=== PATIENT | female | born 1990 | race Caucasian/White ===

== ENCOUNTER 2018-07-15 08:55 | Inpatient (IN) ==
[2018-07-15 09:16] VITALS: BMI 32.4
[2018-07-15 09:28] LABS: BILIRUBIN,URINE 1+ (NEGATIVE); BLOOD/HEMOGLOBIN,URINE 1+ (NEGATIVE); COLOR,URINE YELLOW (YELLOW); GLUCOSE, URINE NEGATIVE (NEGATIVE); KETONES,URINE 1+ (NEGATIVE); LEUKOCYTE ESTERASE ,URINE 2+ (NEGATIVE); NITRITES,URINE POSITIVE (NEGATIVE); PROTEIN,URINE 2+ (NEGATIVE); UROBILINOGEN,URINE 2+ (NORMAL)
[2018-07-15 09:29] LABS: AMNISURE ROM TEST THERE IS A RUPTURE (NO RUPTURE); APPEARANCE,URINE SLIGHTLY HAZY (CLEAR)
[2018-07-15 09:36] LABS: BACTERIA,URINE TRACE /HPF (NEGATIVE); SQUAMOUS EPITHELIAL CELL,UR RARE /HPF (NEGATIVE)
[2018-07-15 09:37] LABS: AMORPHOUS SEDIMENT,UR TRACE /HPF (NEGATIVE); MUCUS,URINE FEW /HPF (NEGATIVE); YEAST,URINE RARE /HPF (NEGATIVE)
[2018-07-15] MEDS ORDERED: LR 1000 ML IV 1,000 ML IV ONE (09:37)
[2018-07-15] MEDS ORDERED: FENTANYL INJ 100 mcg ONE ×2 (09:37→17:10)
[2018-07-15] MEDS ORDERED: D5LR 1L W PITOCIN 10 UNITS/L 10 UNITS/1,000 ML BAG IV ONE (09:38)
[2018-07-15] MEDS ORDERED: NAROPIN EPIDURAL 0.2% + FENTANYL 90MCG 60 ML EPI ONE (09:38)
[2018-07-15] MEDS ORDERED: ADRENALINE CHL INJ ONE (09:39)
[2018-07-15] MEDS ORDERED: PITOCIN ONE (09:39)
[2018-07-15] MEDS ORDERED: XYLOCAINE 1 % (PLAIN) ONE (10:03)
[2018-07-15] MEDS ORDERED: PITOCIN IVP ONE (10:18)
[2018-07-15] MEDS ORDERED: REGLAN INJ 10 MG VIAL IVP PRN ×2 (10:18→17:44)
[2018-07-15] MEDS ORDERED: D5LR 1L W PITOCIN 10 UNITS/L 10 UNITS/1,000 ML BAG IV PRN (10:18)
[2018-07-15] MEDS ORDERED: NUBAIN INJ 200 MG VIAL MULTIDOSE IVP PRN (10:18)
[2018-07-15 10:36] LABS: BASOPHILS # (AUTO) 0.1 X10^3/uL (0.0-0.1); EOSINOPHILS # (AUTO) 0.1 x10^3/uL (0.0-0.2); EOSINOPHILS % (AUTO) 0.6 % (0.9-2.9); HEMATOCRIT 29.4 % (36.0-47.0); HEMOGLOBIN 9.8 g/dL (12.0-16.0); LYMPHOCYTES # (AUTO) 2.1 X10^3/uL (1.3-2.9); LYMPHOCYTES % (AUTO) 18.6 % (21.0-51.0); MEAN CORPUSCULAR HEMOGLOBIN 27.3 pg (27.0-34.0); MEAN CORPUSCULAR HGB CONC 33.2 g/dL (33.0-35.0); MEAN CORPUSCULAR VOLUME 82.2 fL (80.0-100.0); MEAN PLATELET VOLUME 9.5 fL (7.4-11.0); MONOCYTES # (AUTO) 0.6 x10^3/uL (0.3-0.8); MONOCYTES % (AUTO) 5.3 % (0.0-13.0); NEUTROPHILS # (AUTO) 8.5 x10^3/uL (2.2-4.8); NEUTROPHILS % (AUTO) 74.5 % (42.0-75.0); PLATELET COUNT 288 X10^3/uL (150.0-450.0); RED BLOOD COUNT 3.58 X10^6/uL (3.5-5.4); WHITE BLOOD COUNT 11.4 X10^3/uL (3.6-10.0)
[2018-07-15] MEDS ORDERED: PHENERGAN INJ 25 MG IV PRN ×2 (10:38→13:56)
[2018-07-15 10:45] LABS: ALANINE AMINOTRANSFERASE 15 Units/L (12-78); ALBUMIN 2.3 g/dL (3.4-5.0); ALKALINE PHOSPHATASE 130 Units/L (46-116); ASPARTATE AMINO TRANSFERASE 14 Units/L (15-37); BLOOD UREA NITROGEN 6 mg/dL (7-18); CALCIUM 8.4 mg/dL (8.5-10.1); CARBON DIOXIDE 24.8 mmol/L (21-32); CHLORIDE 104 mmol/L (98-107); COR CA(FOR HYPOALB) 9.8 mg/dL (8.5-10.1); SODIUM 137 mmol/L (136-145); TOTAL PROTEIN 6.5 g/dL (6.4-8.2); eGFR NON BLACK RACES > 60 (>60)
[2018-07-15] MEDS ORDERED: D5 1/2 NS 1000 ML 1,000 ML IV SCH (11:00)
--- NOTE | 2018-07-15 12:07 | DR.OB ---
OB Quick Note - Assessment/Plan Assessment/Plan: L&D 07/15/18 at 12:00pm Pitocin=8mu/min. S-No complaint. O-Afebrile,VSS PXF=803 with good LTV, +accel, no decel. CTX=q 1 1/2 to 3 min., mod. by palpation CVX=4cm/75%/0/VTX SROM with clear fluid. IUPC and FSE placed. A-IUP at 37 4/7 weeks in labor A1DM P-Cont. pitocin augmentation Anticipate with PP BTL
[2018-07-15] MEDS: D5 1/2 NS 1000 ML 1,000 ML with PITOCIN 20 UNITS IV SCH ×4 (13:45→23:36)
[2018-07-15] MEDS ORDERED: MOTRIN TAB 800 MG PO PRN (13:56)
[2018-07-15] MEDS ORDERED: XYLOCAINE 2% and EPINEPHRINE 1:100,000 ONE (14:59)
[2018-07-15] MEDS ORDERED: ANCEF 1 GRAM IV PREMIX* 1 G/50 ML BAG IV ONE (15:22)
[2018-07-15] MEDS ORDERED: D5 1/2 NS 1L W PITOCIN 20 UNITS/L 20 UNITS/1,000 ML BAG IV ONE (15:38)
[2018-07-15] MEDS ORDERED: VERSED ONE (15:50)
[2018-07-15] MEDS ORDERED: DIPRIVAN VIAL ONE (15:50)
[2018-07-15] MEDS ORDERED: ZOFRAN INJ 4 MG VIAL IVP PRN (17:44)
[2018-07-15] MEDS ORDERED: BENADRYL INJ 50 MG VIAL IVP PRN (17:44)
[2018-07-15] MEDS ORDERED: DILAUDID INJ IVP PRN (17:44)
[2018-07-15] MEDS ORDERED: PHENERGAN INJ 25 MG IVP PRN (17:44)
[2018-07-15] MEDS ORDERED: DILAUDID INJ ONE (17:48)
--- NOTE | 2018-07-15 17:51 | DR.OB ---
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 Head delivered over intact perineum. No nuchal cord. Nose and mouth bulb suctioned. Body delivered over intact perieum. Late meconium noted. Cord clamped x 2 and cut. handed to attendants. Cord sent for gases. Placenta delivered spontaneously / intact / 3 vessel cord. No CVX / vaginal / perineal tears. Viable male , VTX/OA, wt=7'14" and 9/9, stable to NBN. Mother stable to RR. OAN=[id number].
[2018-07-15] MEDS ORDERED: ADACEL or BOOSTRIX TDaP VACCINE IM ONE (17:52)
[2018-07-15] MEDS ORDERED: DERMOPLAST SPRAY TOP PRN (17:52)
[2018-07-15] MEDS ORDERED: MYLICON TAB 80 MG CHEW PO PRN (17:52)
[2018-07-15] MEDS ORDERED: MILK OF MAGNESIA PO PRN ×2 (17:52)
[2018-07-15] MEDS ORDERED: AMBIEN PO PRN ×2 (17:52)
[2018-07-15] MEDS: ZANTAC PO SCH (20:38)
[2018-07-15] MEDS: BACTRIM DS TAB PO SCH (20:38)
[2018-07-15] MEDS: PERCOCET TAB 5/325 MG PO PRN (22:40)
[2018-07-16] MEDS: PERCOCET TAB 5/325 MG PO PRN (03:19)
[2018-07-16] MEDS: D5 1/2 NS 1000 ML 1,000 ML with PITOCIN 20 UNITS IV SCH ×2 (05:02)
[2018-07-16 05:04] LABS: HEMATOCRIT 29.9 % (36.0-47.0)
[2018-07-16] MEDS: ZANTAC PO SCH (08:06)
[2018-07-16] MEDS: BACTRIM DS TAB PO SCH (08:52)
[2018-07-16] MEDS ORDERED: PRENATAL PLUS PO SCH (09:00)
[2018-07-16 12:54] VITALS: BP 143/91
[2018-07-16] MEDS ORDERED: BACTROBAN TOPICAL OINT TOP SCH (14:00)
== END 2018-07-16 15:25 | disposition home or self-care (01) | DRG 767 ==
LOC: ER 08:57 → LD 09:35
PROVIDERS: ADMIT Specialist; ATTEND Specialist
DX: O99.013 Anemia complicating pregnancy, third trimester; Z3A.37 37 weeks gestation of pregnancy; D50.8 Other iron deficiency anemias; O24.410 Gestational diabetes mellitus in pregnancy, diet controlled; Z37.0 Single live birth; Z30.2 Encounter for sterilization
CPT/HCPCS: 36415; 59409; 80053; 81001; 84112; 85014; 85018; 85025; 86592; 86850; 86900; 86901; 87086; A4216; A4222; S0197; J0171; J0690; J1170; J2001; J2250; J2590; J2704; J3010; J3490; J7120; S5010